=== PATIENT | male | born 1995 | race Caucasian/White ===

== ENCOUNTER 2016-08-21 15:49 | Emergency (ER) | payer OTHER ==
[2016-08-21 18:08] VITALS: BP 115/76
== END 2016-08-21 18:08 | disposition home or self-care (01) ==
LOC: ED 15:49
DX: B37.49 Other urogenital candidiasis (principal)

== ENCOUNTER 2017-03-25 00:44 | Emergency (ER) | payer OTHER ==
[2017-03-25 02:24] VITALS: BP 107/66
== END 2017-03-25 02:24 | disposition home or self-care (01) ==
LOC: ED 00:44
DX: J32.9 Chronic sinusitis, unspecified (principal)
CPT/HCPCS: J1885; J2765

== ENCOUNTER 2018-02-19 04:09 | Emergency (ER) | payer OTHER ==
[~2018-02-19] VITALS: Ht 170.2 cm; Wt 54.5 kg
[2018-02-19 04:21] VITALS: Ht 170.2 cm; Wt 54.5 kg
[2018-02-19 06:58] VITALS: BP 130/69
== END 2018-02-19 06:58 | disposition home or self-care (01) ==
LOC: ED 04:09
DX: M54.5 Low back pain (principal); V29.49XA Motorcycle driver injured in collision with other motor vehicles in traffic accident, initial encounter; Y93.I9 Activity, other involving external motion; Y92.488 Other paved roadways as the place of occurrence of the external cause; Y99.8 Other external cause status